=== PATIENT | female | born 1995 ===

== ENCOUNTER → 2024-09-07 12:47 | Outpatient (CLI) | payer OTHER, SELFPAY ==
[2024-09-07 14:02] LABS: Free T3, Triiodothyronine Free 3.55 pg/mL (2.77-5.27); Free T4, Direct Thyroxine 1.31 ng/dL (0.78-2.19)
[2024-09-07 14:15] LABS: Thyroid Stimulating Hormone 1.42 uIU/mL (0.47-4.68)
[2024-09-08 17:36] LABS: Anti Thyroglobulin Antibody 0.9 IU/mL (0.0-0.9)
== END ==
PROVIDERS: PCP Family Medicine; Referring Provider Family Medicine; Visit Provider Family Medicine
DX: E03.9 Hypothyroidism, unspecified (principal)
CPT/HCPCS: 36415; 84439; 84443; 84481; 86376; 86800

== ENCOUNTER 2024-09-07 14:44 | Emergency (ER) | payer OTHER, SELFPAY ==
[2024-09-07 14:51] VITALS: BP 121/64; PULSE 102; RESP 17; TEMP 36.2; O2SAT 99; BMI 23.3
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
--- NOTE | 2024-09-07 18:57 | PC.NURSE ---
patient is tender to palpation, cervical.
[2024-09-07 19:08] LABS: Add Manual Diff / Slide Review NO; Hematocrit 35.5 % (36-46); Hemoglobin 12.3 g/dL (12.0-16.0); Lymphocytes Absolute Auto 900 /uL (1100-4500); Mean Corpuscular HGB Conc 34.8 % (30-36); Mean Corpuscular Hemoglobin 30.6 PG (26-34); Mean Corpuscular Volume 88.0 fL (80-100); Platelet Count 277 X10^3/uL (150-400)
[2024-09-07 19:20] LABS: Alanine Aminotransferase 13 IU/L (<35); Albumin 4.8 g/dL (3.5-5.0); Albumin Globulin Ratio 1.5 (1.0-2.8); Alkaline Phosphatase 53 U/L (38-126); Blood Urea Nitrogen 3 mg/dL (7-17); Calcium 9.5 mg/dL (8.4-10.2); Carbon Dioxide 21 mmol/L (22-32); Chloride 103 mmol/L (98-107); Estimated Glomerular Filt Rate > 60 mL/min (>60); Globulin 3.1 g/dL (1.7-4.1); Glucose 122 mg/dL (70-99); HEMOLYSIS < 15 (0-50); Potassium 4.2 mmol/L (3.4-5.1); Sodium 134 mmol/L (137-145); Total Protein 7.9 g/dL (6.3-8.2)
[2024-09-07 20:24] LABS: HCG Quantitative /Beta subunit 198620 mIU/mL
[2024-09-07 20:41] VITALS: BP 110/57; PULSE 85; RESP 20; O2SAT 97
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
== END 2024-09-07 20:49 | disposition home or self-care (01) ==
PROVIDERS: Emergency Provider Family Medicine; PCP Family Medicine
DX: O26.891 Other specified pregnancy related conditions, first trimester (principal); S13.4XXA Sprain of ligaments of cervical spine, initial encounter; M54.6 Pain in thoracic spine; V89.2XXA Person injured in unspecified motor-vehicle accident, traffic, initial encounter; Z3A.09 9 weeks gestation of pregnancy
CPT/HCPCS: 76801; 80053; 81003; 81015; 84702; 85025; 99282; 99284

== ENCOUNTER → 2025-02-10 10:39 | Outpatient (CLI) | payer OTHER, SELFPAY ==
[2025-02-10 12:32] LABS: Hematocrit 34.7 % (36-46); Hemoglobin 11.9 g/dL (12.0-16.0); Mean Corpuscular HGB Conc 34.2 % (30-36); Mean Corpuscular Hemoglobin 30.0 PG (26-34); Mean Corpuscular Volume 87.7 fL (80-100); Platelet Count 314 X10^3/uL (150-400)
[2025-02-10 13:43] LABS: TSH w/ Reflex to FT4 1.79 uIU/mL (0.47-4.68)
== END ==
PROVIDERS: Family Provider Family Medicine; PCP Family Medicine; Referring Provider Family Medicine; Visit Provider Family Medicine
DX: Z34.93 Encounter for supervision of normal pregnancy, unspecified, third trimester (principal); E03.9 Hypothyroidism, unspecified; D64.9 Anemia, unspecified
CPT/HCPCS: 36415; 84443; 85027